=== PATIENT | male | born 1955 | race Caucasian/White ===

== ENCOUNTER 2017-08-02 11:45 | Emergency (ER) | payer OTHER ==
[2017-08-02] MEDS ORDERED: fentaNYL 100 MCG/2 ML SDV IM PRN (12:22)
--- NOTE | 2017-08-02 12:33 | EDM.PDOC ---
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 Has swelling to both areas and is tender. No numbness or tingling noted. No obvious deformities. Has not been able to bear weight on it due to the pain. No other injury noted. Onset: Sudden Location: Reports: Lower Extremity, Right Quality: Reports: Sharp Worsens with: Reports: Movement Associated Symptoms: Reports: No Other Symptoms Right Lower Leg Pain Score (Numeric/FACES): 7 - Related Data Allergies Allergy/AdvReac Type Severity Reaction Status Date / Time No Known Allergies Allergy Verified 08/02/17 11:54 Home Meds: Home Meds Lisinopril/Hydrochlorothiazide [Lisinopril-Hctz 20-25 mg Tab] 1 tab PO DAILY 09/14 [History] Past Medical History - Past Health History Medical/Surgical History: Denies Medical/Surgical History Cardiovascular History: Reports: Hypertension - Past Surgical History GI Surgical History: Reports: Colonoscopy Social & Family History - Tobacco Use Smoking Status *Q: Never Smoker - Caffeine Use Caffeine Use: Reports: Soda - Recreational Drug Use Recreational Drug Use: No Review of Systems - Review of Systems Review Of Systems: See Below Constitutional: Reports: No Symptoms Respiratory: Reports: No Symptoms Cardiovascular: Reports: No Symptoms GI/Abdominal: Reports: No Symptoms Musculoskeletal: Reports: Leg Pain, Foot Pain, Joint Pain Skin: Reports: No Symptoms Neurological: Reports: No Symptoms ED EXAM, GENERAL - Physical Exam Exam: See Below Exam Limited By: No Limitations General Appearance: Alert, WD/WN, Moderate Distress Respiratory/Chest: No Respiratory Distress, Lungs Clear, Normal Breath Sounds Cardiovascular: Regular Rate, Rhythm, No Edema Extremities: Other (Pain noted to the mid shaft nesbitt area. Area is swollen and tender to palpation. Has pain to the right ankle with any movment or palpation. Area is swollen. Good pulse noted.) Neurological: Alert, Oriented Skin Exam: Warm, Dry, Intact Course - Vital Signs Last Recorded V/S: Last Vital Signs Temp 98.2 F 08/02/17 11:57 Pulse 64 08/02/17 11:57 Resp 20 08/02/17 11:57 BP 123/57 L 08/02/17 11:57 Pulse Ox 94 L 08/02/17 11:57 - Orders/Labs/Meds Orders: Active Orders 24 hr Category Date Time Status Ankle Min 3V Rt [CR] Stat Exams 08/02/17 11:54 Taken Tibia Fibula Rt [CR] Stat Exams 08/02/17 11:54 Taken fentaNYL [Sublimaze] Med 08/02/17 12:22 Active 50 mcg IM Q4H PRN Medication Orders Fentanyl (Sublimaze) 50 mcg IM Q4H PRN PRN Reason: Pain Last Admin: 08/02/17 12:27 Dose: 50 mcg Meds: Medications Generic Name Dose Route Start Last Admin Trade Name Freq PRN Reason Stop Dose Admin Fentanyl 50 mcg 08/02/17 12:22 08/02/17 12:27 Sublimaze IM 50 mcg Q4H PRN Administration Pain - Re-Assessments/Exams Free Text/Narrative Re-Assessment/Exam: 08/02/17 [address] [facility]. Will see him on Sunday AM for surgery [place] at all times No weight bearing Nothing to eat or drink prior to surgery on Sunday. [facility] will call you in the next 1-2 days to register you and get info. David Departure - Departure Time of Disposition: 13:25 Disposition: Home, Self-Care 01 Condition: Good Clinical Impression: Fracture, fibula, shaft Qualifiers: Encounter type: initial encounter Fracture type: closed Fracture morphology: spiral Fracture alignment: nondisplaced Laterality: right Qualified Code(s): S82.444A - Nondisplaced spiral fracture of shaft of right fibula, initial encounter for closed fracture Maisonneuve fracture of right lower extremity Qualifiers: Encounter type: initial encounter Fracture type: closed Fracture alignment: displaced Qualified Code(s): S82.861A - Displaced Maisonneuve's fracture of right leg, initial encounter for closed fracture - Discharge Information Forms: ED Department Discharge Additional Instructions: [place] - 1-2 tabs every 4 hours as needed for pain Ice to the ankle 2-3 times a day to help with the swelling [place] at all times Non weight bearing at all times [facility] will call you to pre register and give you instructions Elevate leg as much as possible to prevent swelling - Problem List & Annotations (1) Fracture, fibula, shaft SNOMED Code(s): 23327940 Code(s): S82.409A - UNSP FRACTURE OF SHAFT OF UNSP FIBULA, INIT FOR CLOS FX Status: Acute Priority: High Qualifiers: Encounter type: initial encounter Fracture type: closed Fracture morphology: spiral Fracture alignment: nondisplaced Laterality: right Qualified Code(s): S82.444A - Nondisplaced spiral fracture of shaft of right fibula, initial encounter for closed fracture (2) Maisonneuve fracture of right lower extremity SNOMED Code(s): 48547527 Code(s): S82.861A - DISPLACED MAISONNEUVE'S FRACTURE OF RIGHT LEG, INIT Status: Acute Priority: High Qualifiers: Encounter type: initial encounter Fracture type: closed Fracture alignment: displaced Qualified Code(s): S82.861A - Displaced Maisonneuve's fracture of right leg, initial encounter for closed fracture - Problem List Review Problem List Initiated/Reviewed/Updated: Yes - My Orders Last 24 Hours: My Active Orders 08/02/17 11:54 Ankle Min 3V Rt [CR] Stat Tibia Fibula Rt [CR] Stat 08/02/17 12:22 fentaNYL [Sublimaze] 50 mcg IM Q4H PRN - Assessment/Plan Last 24 Hours: My Active Orders 08/02/17 11:54 Ankle Min 3V Rt [CR] Stat Tibia Fibula Rt [CR] Stat 08/02/17 12:22 fentaNYL [Sublimaze] 50 mcg IM Q4H PRN
== END 2017-08-02 14:00 | disposition home or self-care (01) ==
LOC: CC.ED 11:45
DX: S82.444A Nondisplaced spiral fracture of shaft of right fibula, initial encounter for closed fracture (principal); S82.861A Displaced Maisonneuve's fracture of right leg, initial encounter for closed fracture; Z79.899 Other long term (current) drug therapy; W00.0XXA Fall on same level due to ice and snow, initial encounter
CPT/HCPCS: 73590; 73610; 96372; 99283; J3010

== ENCOUNTER 2017-08-07 15:59 | Inpatient (IN) | payer OTHER ==
[2017-08-07] MEDS ORDERED: traMADol 50 MG Tab PO PRN (17:28)
[2017-08-07] MEDS: TRAMADOL 50 MG PO PRN (22:24)
[2017-08-08] MEDS: TRAMADOL 50 MG PO PRN ×3 (05:34→22:07)
[2017-08-08] MEDS ORDERED: ASPIRIN 325 MG PO SCH (08:00)
[2017-08-08] MEDS ORDERED: Lisinopril 20 MG Tab PO SCH (08:00)
[2017-08-08] MEDS ORDERED: Hydrochlorothiazide 25 MG Tab PO SCH (08:00)
[2017-08-08] MEDS ORDERED: Aspirin 325 MG Tab PO SCH (08:00)
[2017-08-08] MEDS: LISINOPRIL PO SCH (08:23)
[2017-08-08] MEDS: HCTZ PO SCH (08:23)
[2017-08-08] MEDS: ASPIRIN 325 MG PO SCH (08:23)
--- NOTE | 2017-08-08 09:04 | HP ---
CHIEF COMPLAINT: Status post fibular repair. HISTORY OF PRESENT ILLNESS: Gustavo is a 61-year-old male, who presents to the hospital for swing bed admission secondary to status post right lower extremity internal fixation that was completed today by Dr. Conrad at [facility]. He states that he has a lot difficulty as he is unable to bear any weight. He is concerned about going home albeit by himself and not being able to take care of himself. He states presently that he did fairly well throughout the procedure. Denies any post anesthesia complications. He states he has been feeling quite well. Admits to some discomfort in the right lower leg at this point in time. Dr. Conrad did send them home with the tramadol 50 mg one every 4 hours as needed. The injury did occur on 08/02, which he was out feeding cows and ended up slipping on some ice and immediately had some pain in his right ankle and right nesbitt area. It was determined that he had both displaced maisonneuve's fracture. PAST MEDICAL HISTORY: He does have a history of hypertension. PAST SURGICAL HISTORY: Includes a colonoscopy. CURRENT MEDICATIONS: Include lisinopril/HCTZ 20/25, one tab, p.o. daily, just recently started the aspirin 325 mg daily, and tramadol 50 mg every 4 hours as needed. SOCIAL HISTORY: Nondrinker, nonsmoker. REVIEW OF SYSTEMS: He denies any headache, fevers, chills, nausea, vomiting, shortness of breath, chest pain. No palpitations in his chest. Denies any upper respiratory symptoms. No cough. Denies any abdominal pain, any constipation. No urinary complaints. He does complain of some right lower extremity discomfort status post surgery, some swelling to the right lower extremity. PHYSICAL EXAMINATION: VITAL SIGNS: Height of 5 feet 7 inches. Weight 300 pounds. Temperature 100.1, respirations 16, blood pressure 130/66, O2 is 94% on room air, pulse 85. GENERAL: Pleasant, cooperative male, who is sitting comfortably in examination room, does not appear to be in acute distress, not acutely ill. HEENT: Grossly unremarkable. Head is normocephalic and atraumatic. Sclerae and conjunctivae clear. Ear canals are clear. Tympanic membranes are intact. Nasal mucosa is pink, moist. Oral mucosa is pink and moist. Pharynx is clear. NECK: Supple. Trachea is midline. No lymphadenopathy. LUNGS: Clear to auscultation. I did not hear any adventitious sounds. Respirations are equal and nonlabored. CARDIAC: Regular rate and rhythm. No murmurs, gallops, or rubs are noted. ABDOMEN: Morbidly obese, soft, nontender, nondistended. Bowel sounds are present. Normoactive. No organomegaly. No guarding or rigidity. EXTREMITIES: 1+ pedal edema in the right lower extremity. He does have a walking boot present. Wounds are covered with dressings which we are advised not to remove any dressings. Capillary refill is less than 3 seconds. ASSESSMENT: STATUS POST RIGHT FIBULAR REPAIR. PLAN: We will keep him on nonweightbearing and we will also eval for scooter usage by PT. We will ice 20 minutes on, 40 minutes off for the next 3 days. He does have a followup checkup 08/17 at 11:30 with [facility], in [place]. We will keep his diet as low-sodium diet. I did advise if he has any complications, questions or concerns, he is to definitely let us know, otherwise he will be admitted to Dr. Saavedra's services under half-way. GIANCARLO/GASPER /[id number]
[2017-08-09] MEDS: TRAMADOL 50 MG PO PRN ×2 (06:49→23:51)
[2017-08-09] MEDS: HCTZ PO SCH (07:51)
[2017-08-09] MEDS: LISINOPRIL PO SCH (07:51)
[2017-08-09] MEDS: ASPIRIN 325 MG PO SCH (07:51)
[2017-08-10] MEDS: TRAMADOL 50 MG PO PRN (03:52)
[2017-08-10] MEDS: HCTZ PO SCH (07:34)
[2017-08-10] MEDS: ASPIRIN 325 MG PO SCH (07:34)
[2017-08-10] MEDS: LISINOPRIL PO SCH (07:34)
[2017-08-11] MEDS: TRAMADOL 50 MG PO PRN ×2 (00:55→22:08)
[2017-08-11] MEDS: HCTZ PO SCH (07:50)
[2017-08-11] MEDS: ASPIRIN 325 MG PO SCH (07:50)
[2017-08-11] MEDS: LISINOPRIL PO SCH (07:50)
[2017-08-12] MEDS: TRAMADOL 50 MG PO PRN (06:14)
[2017-08-12] MEDS: ASPIRIN 325 MG PO SCH (08:04)
[2017-08-12] MEDS: LISINOPRIL PO SCH (08:05)
[2017-08-12] MEDS: HCTZ PO SCH (08:05)
--- NOTE | 2017-08-12 13:00 | PCM.DCSUM1 ---
Discharge Summary - Hospital Course Free Text/Narrative:: Patient was admitted to swing bed for pain control after having ORIF of right ankle due to fracture. 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 Had surgical procedure done by Dr. Louis on the . Patient felt he was not able to care for himself due to nonweightbearing status and pain so was admitted here. He had not done well on hydrocodone as he couldn't sleep so admitted with tramadol for pain. - Discharge Data Discharge Date: 08/12/17 Discharge Disposition: Home, Self-Care 01 Condition: Good - Patient Summary/Data Complications: none Consults: Consultations 08/07/17 17:20 PT Evaluation and Treatment [CONS] Routine Hospital Course: Patient doing well with the use of his walker as he will have to remain no weight bearing for 6 weeks. Cam boot intact. Does have a moderate amount of swelling to right ankle and foot. [place] bandage intact. He is tolerating pain with the tramadol. PT did work with patient for initial management of fracture care. Scheduled to see Dr. Louis on as planned. - Patient Instructions Diet: Usual Diet as Tolerated Activity: As Tolerated - Discharge Plan Home Medications: Home Meds Lisinopril/Hydrochlorothiazide [Lisinopril-Hctz 20-25 mg Tab] 1 tab PO DAILY 09/14 [History] Aspirin 325 mg PO DAILY 08/07/17 [History] traMADol [Ultram] 50 mg PO Q4H PRN 08/07/17 [History] Referrals: Tomasz Louis MD [Ordering Only Provider] - (Keep scheduled appointment with Dr. Louis on the as planned) - Discharge Summary/Plan Comment DC Time >30 min.: No Discharge Summary/Plan Comment: Discharge home on usual meds. Tramadol for pain - General Info Date of Service: 08/12/17 Admission Dx/Problem (Free Text: ORIF of Right Fibular Fracture Functional Status: Reports: Pain Controlled, Tolerating Diet, Ambulating - Review of Systems General: Reports: No Symptoms HEENT: Reports: No Symptoms Pulmonary: Reports: No Symptoms Cardiovascular: Reports: No Symptoms Gastrointestinal: Reports: No Symptoms Genitourinary: Reports: No Symptoms Musculoskeletal: Reports: Leg Pain Neurological: Reports: No Symptoms - Patient Data Vitals - Most Recent: Last Vital Signs Temp 97.8 F 08/12/17 07:17 Pulse 72 08/12/17 07:17 Resp 18 08/12/17 07:17 BP 134/75 08/12/17 07:17 Pulse Ox 94 L 08/12/17 07:17 Weight - Most Recent: 300 lb Med Orders - Current: Current Medications Aspirin (Ecotrin) 325 mg PO DAILY [facility] Last Admin: 08/12/17 08:04 Dose: 325 mg Ptom Lisinopril/ (Hctz 20/25 Mg Tab) 1 each PO DAILY [facility] Last Admin: 08/12/17 08:05 Dose: 1 each Tramadol HCl (Ultram) 50 mg PO Q4H PRN PRN Reason: Pain Last Admin: 08/12/17 06:14 Dose: 50 mg Discontinued Medications Aspirin (Aspirin) 325 mg PO DAILY [facility] Tramadol HCl (Ultram) 50 mg PO Q4H PRN PRN Reason: Pain Last Admin: 08/07/17 18:10 Dose: 50 mg - Exam General: Reports: Alert, Oriented HEENT: Reports: Mucous Membr. Moist/[place] Neck: Reports: Supple Lungs: Reports: Clear to Auscultation, Normal Respiratory Effort Cardiovascular: Reports: Regular Rate, Regular Rhythm GI/Abdominal Exam: Normal Bowel Sounds, Soft, Non-Tender Skin: Reports: Warm, Dry Wound/Incisions: Reports: Healing Well Neurological: Reports: No New Focal Deficit
== END 2017-08-12 13:00 | disposition home or self-care (01) | DRG 556 ==
LOC: CC.MS 16:28 → UNDOADMIN 16:28 → CC.MS 17:20
PROVIDERS: ADMIT Family Medicine; ATTEND Family Medicine
DX: R26.2 Difficulty in walking, not elsewhere classified (principal); M79.604 Pain in right leg; R60.0 Localized edema; S82.861D Displaced Maisonneuve's fracture of right leg, subsequent encounter for closed fracture with routine healing; W00.0XXD Fall on same level due to ice and snow, subsequent encounter; I10 Essential (primary) hypertension; Z79.82 Long term (current) use of aspirin; Z79.899 Other long term (current) drug therapy
CPT/HCPCS: A9270-GY

== ENCOUNTER 2020-07-20 19:16 | Observation (INO) | payer OTHER ==
[2020-07-20 19:50] LABS: CHLORIDE,CL 102 mEq/L (98-106); SODIUM,NA 142 mEq/L (136-145)
[2020-07-20] MEDS: Sodium Chloride 0.9% 1,000 ML IV SCH (19:50)
[2020-07-20] MEDS ORDERED: Ondansetron 4 MG/2 ML SDV IVPUSH PRN (19:52)
--- NOTE | 2020-07-20 19:54 | EDM.PDOC ---
ED HPI GENERAL MEDICAL PROBLEM - General Chief Complaint: General Stated Complaint: "dont feel good", sweating Time Seen by Provider: 07/20/20 19:25 Source of Information: Reports: Patient History Limitations: Reports: No Limitations - History of Present Illness INITIAL COMMENTS - FREE TEXT/NARRATIVE: Gustavo is a 64 year old male presents to ER with complaints of "not feeling well". States was sitting and reading on his phone when started to feel "off". Describes as dizzy yet room was feeling black as if going to pass out. Feels off balance. He denies chest pain. No shortness of breath. Had cramping in his abdomen, felt nauseated and thought was going to throw up but in turn had diarrhea. Had been feeling good up to that point. Ate per his norm today. Has not experienced symptoms like this in the past. Was pale and clammy on arrival to ER. At present, feels that dizziness has improved however still doesn't feel right. No head trauma. No headache Onset: Today, Sudden Duration: Minutes:, Waxing/Waning Location: Reports: Generalized Improves with: Reports: Rest Worsens with: Reports: Movement Associated Symptoms: Reports: Malaise, Nausea/Vomiting, Weakness. Denies: Confusion, Chest Pain, Cough, Fever/Chills, Headaches, Loss of Appetite, Seizure, Shortness of Breath - Related Data Allergies Allergy/AdvReac Type Severity Reaction Status Date / Time No Known Allergies Allergy Verified 07/20/20 19:49 Home Meds: Home Meds Lisinopril/Hydrochlorothiazide [Lisinopril-Hctz 20-25 mg Tab] 1 tab PO DAILY 08/02/17 [History] Past Medical History - Past Health History Medical/Surgical History: Denies Medical/Surgical History Cardiovascular History: Reports: Hypertension - Past Surgical History GI Surgical History: Reports: Colonoscopy Musculoskeletal Surgical History: Reports: Other (See Below) Other Musculoskeletal Surgeries/Procedures:: right leg plate and screws Social & Family History - Caffeine Use Caffeine Use: Reports: Soda ED ROS GENERAL - Review of Systems Review Of Systems: See Below Constitutional: Reports: Chills, Malaise, Weakness, Fatigue. Denies: Fever, Decreased Appetite HEENT: Reports: Vertigo. Denies: Ear Pain, Throat Pain, Vision Change Respiratory: Denies: Shortness of Breath, Cough Cardiovascular: Reports: Lightheadedness. Denies: Chest Pain, Edema Endocrine: Reports: Fatigue GI/Abdominal: Reports: Diarrhea, Nausea. Denies: Abdominal Pain, Constipation, Vomiting : Reports: No Symptoms Musculoskeletal: Reports: No Symptoms Skin: Reports: Pallor, Diaphoresis Neurological: Reports: Dizziness ED EXAM, GENERAL - Physical Exam Exam: See Below Exam Limited By: No Limitations General Appearance: Alert, Mild Distress Eye Exam: Bilateral Eye: EOMI, PERRL Ears: Normal External Exam, Normal TMs Nose: Normal Inspection, Normal Mucosa, No Blood Throat/Mouth: Normal Inspection, Normal Oropharynx Head: Normocephalic Neck: Normal Inspection, Supple, Non-Tender Respiratory/Chest: No Respiratory Distress, Lungs Clear, Normal Breath Sounds Cardiovascular: Regular Rate, Rhythm GI/Abdominal: Normal Bowel Sounds, Soft, Non-Tender Extremities: Normal Inspection, No Pedal Edema Neurological: Alert, Oriented, CN II-XII Intact Skin Exam: Diaphoretic, Pallor Course - Vital Signs Last Recorded V/S: Last Vital Signs Temp 99.1 F 07/20/20 19:32 Pulse 91 07/20/20 20:16 Resp 22 H 07/20/20 20:16 BP 130/73 07/20/20 20:16 Pulse Ox 95 07/20/20 19:42 - Orders/Labs/Meds Orders: Active Orders 24 hr Category Date Time Status EKG Documentation Completion [RC] STAT Care 07/20/20 19:24 Active Chest 2V [CR] Stat Exams 07/20/20 19:24 Taken Head wo Cont [CT] Stat Exams 07/20/20 19:47 Taken Ondansetron [Zofran] Med 07/20/20 19:52 Active 4 mg IVPUSH Q6H PRN Sodium Chloride 0.9% [Normal Saline] 1,000 ml Med 07/20/20 19:45 Active IV ASDIRECTED Medication Orders Sodium Chloride (Normal Saline) 1,000 mls @ 150 mls/hr IV ASDIRECTED ARNOLDO Last Admin: 07/20/20 19:50 Dose: 150 mls/hr Documented by: ADINA Ondansetron HCl (Ondansetron 4 Mg/2 Ml Sdv) 4 mg IVPUSH Q6H PRN PRN Reason: Nausea Last Admin: 07/20/20 19:55 Dose: 4 mg Documented by: KUTZANG Labs: Laboratory Tests 07/20/20 07/20/20 07/20/20 Range/Units 19:23 19:41 19:41 WBC 10.5 H (5.0-10.0) 10^3/uL RBC 4.71 (4.50-6.00) 10^6/uL Hgb 14.9 (14.0-18.0) g/dL Hct 43.8 (40.0-54.0) % MCV 93.0 (82.0-94.0) fL MCH 31.6 (27.0-32.0) pg MCHC 34.0 (33.0-38.0) g/dL RDW Coeff of Sunil 12.3 (11.0-15.0) % Plt Count 342 (150-400) 10^3/uL Neut % (Auto) 50.5 (35-85) % Lymph % (Auto) 37.3 (10-55) % Harrison % (Auto) 9.1 (0-16) % Eos % (Auto) 2.7 (0-5) % Baso % (Auto) 0.4 (0-3) % Neut # (Auto) 5.30 (1.80-7.00) 10^3/uL Lymph # (Auto) 3.92 (1.00-4.80) 10^3/uL Harrison # (Auto) 0.96 H (0.00-0.80) 10^3/uL Eos # (Auto) 0.28 (0.00-0.45) 10^3/uL Baso # (Auto) 0.04 10^3/uL PT 10.7 (9.7-12.3) SEC INR 0.98 (0.92-1.18) APTT 21.6 L (23.2-32.3) SEC D-Dimer, Quantitative 0.48 (0.00-0.50) Sodium 142 (136-145) mEq/L Potassium 3.2 L (3.5-5.0) mEq/L Chloride 102 (98-106) mEq/L Carbon Dioxide 26 (21-32) mmol/L BUN 18 (7-18) mg/dL Creatinine 1.2 (0.7-1.3) mg/dL Est Cr Clr Drug Dosing 58.14 mL/min Estimated GFR (MDRD) > 60 (>=60) mL/min Glucose 159 H D (75-99) mg/dL Calcium 9.3 (8.4-10.1) mg/dL Magnesium 1.8 (1.8-2.4) mg/dL Total Bilirubin 0.6 (0.0-1.0) mg/dL AST 44 H (15-37) U/L ALT 67 (12-78) U/L Alkaline Phosphatase 61 (46-116) U/L Lactate Dehydrogenase 172 (100-190) U/L Creatine Kinase 83 (35-232) U/L Troponin I < 0.017 (0.00-0.06) ng/mL Total Protein 8.0 (6.4-8.2) g/dL Albumin 3.8 (3.4-5.0) g/dL Lipase 129 (73-393) U/L SARS CoV-2 RNA Rapid EMMY (NEGATIVE) 07/20/20 Range/Units 20:19 WBC (5.0-10.0) 10^3/uL RBC (4.50-6.00) 10^6/uL Hgb (14.0-18.0) g/dL Hct (40.0-54.0) % MCV (82.0-94.0) fL MCH (27.0-32.0) pg MCHC (33.0-38.0) g/dL RDW Coeff of Sunil (11.0-15.0) % Plt Count (150-400) 10^3/uL Neut % (Auto) (35-85) % Lymph % (Auto) (10-55) % Harrison % (Auto) (0-16) % Eos % (Auto) (0-5) % Baso % (Auto) (0-3) % Neut # (Auto) (1.80-7.00) 10^3/uL Lymph # (Auto) (1.00-4.80) 10^3/uL Harrison # (Auto) (0.00-0.80) 10^3/uL Eos # (Auto) (0.00-0.45) 10^3/uL Baso # (Auto) 10^3/uL PT (9.7-12.3) SEC INR (0.92-1.18) APTT (23.2-32.3) SEC D-Dimer, Quantitative (0.00-0.50) Sodium (136-145) mEq/L Potassium (3.5-5.0) mEq/L Chloride (98-106) mEq/L Carbon Dioxide (21-32) mmol/L BUN (7-18) mg/dL Creatinine (0.7-1.3) mg/dL Est Cr Clr Drug Dosing mL/min Estimated GFR (MDRD) (>=60) mL/min Glucose (75-99) mg/dL Calcium (8.4-10.1) mg/dL Magnesium (1.8-2.4) mg/dL Total Bilirubin (0.0-1.0) mg/dL AST (15-37) U/L ALT (12-78) U/L Alkaline Phosphatase (46-116) U/L Lactate Dehydrogenase (100-190) U/L Creatine Kinase (35-232) U/L Troponin I (0.00-0.06) ng/mL Total Protein (6.4-8.2) g/dL Albumin (3.4-5.0) g/dL Lipase (73-393) U/L SARS CoV-2 RNA Rapid EMMY Negative (NEGATIVE) Meds: Medications Generic Name Dose Route Start Last Admin Trade Name Freq PRN Reason Stop Dose Admin Sodium Chloride 1,000 mls @ 150 mls/hr 07/20/20 19:45 07/20/20 19:50 Normal Saline IV 150 mls/hr ASDIRECTED ARNOLDO Administration Ondansetron HCl 4 mg 07/20/20 19:52 07/20/20 19:55 Ondansetron 4 Mg/2 Ml Sdv IVPUSH 4 mg Q6H PRN Administration Nausea - Re-Assessments/Exams Free Text/Narrative Re-Assessment/Exam: 07/20/20 20:[address] scan, did get nauseated and whoozy again. Blood pressure did drop to 105 systolic. 2030- Head CT is normal. Labs are all essentially stable. Potassium slightly low at 3.2. Cardiac enzymes, d-dimer and covid negative. Discussed with patient. will admit to observation, continue IV fluids due to hypokalemia, dizziness and monitor neuro status and cardiac telemetry. Departure - Departure Time of Disposition: 20:39 Disposition: Refer to Observation Condition: Fair Clinical Impression: Vertigo - Discharge Information *PRESCRIPTION DRUG MONITORING PROGRAM REVIEWED*: No *COPY OF PRESCRIPTION DRUG MONITORING REPORT IN PATIENT JOSS: No Referrals: Stephen Saavedra MD [Primary Care Provider] - Forms: ED Department Discharge Sepsis Event Note (ED) - Focused Exam Vital Signs: Vital Signs Temp Pulse Resp BP Pulse Ox 07/20/20 20:16 91 22 H 130/73 07/20/20 19:42 101 H 137/74 95 07/20/20 19:36 92 18 138/81 90 L 07/20/20 19:32 99.1 F 96 16 132/78 91 L 07/20/20 19:22 99.1 F 96 21 H 133/76 92 L - Problem List & Annotations (1) Vertigo SNOMED Code(s): 514557461 Code(s): R42 - DIZZINESS AND GIDDINESS Status: Acute Priority: High Current Visit: Yes - Problem List Review Problem List Initiated/Reviewed/Updated: Yes - My Orders Last 24 Hours: My Active Orders 07/20/20 19:24 EKG Documentation Completion [RC] STAT Chest 2V [CR] Stat 07/20/20 19:45 Sodium Chloride 0.9% [Normal Saline] 1,000 ml IV ASDIRECTED 07/20/20 19:47 Head wo Cont [CT] Stat 07/20/20 19:52 Ondansetron [Zofran] 4 mg IVPUSH Q6H PRN - Assessment/Plan Admission H&P: Please use this note as an admission H&P Last 24 Hours: My Active Orders 07/20/20 19:24 EKG Documentation Completion [RC] STAT Chest 2V [CR] Stat 07/20/20 19:45 Sodium Chloride 0.9% [Normal Saline] 1,000 ml IV ASDIRECTED 07/20/20 19:47 Head wo Cont [CT] Stat 07/20/20 19:52 Ondansetron [Zofran] 4 mg IVPUSH Q6H PRN Assessment:: Vertigo Plan: Admit observation. Telemetry, neuro checks. IV fluids. Zofran for nausea.
[2020-07-20 20:00] LABS: PTT,PARTIAL THROMBOPLSTIN TIME 21.6 SEC (23.2-32.3)
[2020-07-20] MEDS ORDERED: Acetaminophen 325 MG Tab PO PRN (20:58)
[2020-07-20] MEDS ORDERED: Ondansetron 4 MG Tab.DIS PO PRN (20:58)
[2020-07-20] MEDS ORDERED: Enoxaparin 40 MG/0.4 ML Syringe SUBCUT SCH (21:00)
[2020-07-21] MEDS: Sodium Chloride 0.9% 1,000 ML IV SCH (03:26)
[2020-07-21 07:24] LABS: CHLORIDE,CL 103 mEq/L (98-106); SODIUM,NA 142 mEq/L (136-145)
--- NOTE | 2020-07-21 23:25 | PCM.DCSUM1 ---
Discharge Summary - Hospital Course HPI Initial Comments: Gustavo is a 64 year old male presented to ER with complaints of "not feeling well" yesterday evening. States was sitting and reading on his phone when started to feel "off". Describes as dizzy yet room was feeling black as if going to pass out. [place] off balance. He denied any chest pain. No shortness of breath. Had cramping in his abdomen, felt nauseated and thought was going to throw up but in turn had diarrhea. Had been feeling good up to that point. Ate per his norm yesterday. Had not experienced symptoms like this in the past. Was pale and clammy on arrival to ER. Prior to admission he admitted the dizziness had improved however still didn't feel right. No head trauma. No headache. Patient underwent CT of the brain which was unremarkable. Cardiac work up in the ED was negative. D-dimer negative. Potassium slightly low. Patient was admitted under observation status. Diagnosis: Stroke: No - Discharge Data Discharge Date: 07/21/20 Discharge Disposition: Home, Self-Care 01 Condition: Good - Referral to Home Health Primary Care Physician: Stephen Saavedra MD - Discharge Diagnosis/Problem(s) (1) Vertigo SNOMED Code(s): 991396936 ICD Code: R42 - DIZZINESS AND GIDDINESS Status: Resolved Priority: High - Patient Instructions Diet: Usual Diet as Tolerated Activity: As Tolerated - Discharge Plan *PRESCRIPTION DRUG MONITORING PROGRAM REVIEWED*: No *COPY OF PRESCRIPTION DRUG MONITORING REPORT IN PATIENT JOSS: No Prescriptions/Med Rec: Meclizine [Antivert] 25 mg PO Q6H PRN #30 tab PRN Reason: Dizziness Home Medications: Home Meds Lisinopril/Hydrochlorothiazide [Lisinopril-Hctz 20-25 mg Tab] 1 tab PO DAILY 08/02/17 [History] Meclizine [Antivert] 25 mg PO Q6H PRN #30 tab 07/21/20 [Rx] Oxygen Therapy Mode: Room Air Patient Handouts: Diverticulitis, [id number], Dizziness, [id number] Forms: ED Department Discharge Referrals: Manuel Jackson PA-C [Physician Wireless Sales Representative] - 07/30/20 (1:00pm) - Discharge Summary/Plan Comment DC Time >30 min.: Yes Discharge Summary/Plan Comment: Patient was feeling back to normal self this morning. Denied any concerns. Dizziness subsided and verbalized he wanted to go home. Patient has known history of diverticulitis in the past and similar symptoms. Will discharge on Ciprofloxacin. Discussed obtaining CT of the abdomen/pelvis to look at diverticula, which patient declined today. Meclizine prescribed and advised to use if any further vertigo. Potassium corrected on repeat labs. Patient will follow up with primary in 1 week, advised to return sooner if any concerns. - General Info Date of Service: 07/21/20 Subjective Update: Gustavo appears to be in good spirits today and admits dizziness has completely subsided. Denies feeling off or having any symptoms from yesterday. He admits to having history of diverticulitis and is having similar symptoms. Declines further work up with imaging at this time. Requests to be discharged today. Functional Status: Reports: Pain Controlled, Tolerating Diet, Ambulating, Urinating. Denies: New Symptoms - Review of Systems General: Reports: No Symptoms HEENT: Reports: No Symptoms Pulmonary: Reports: No Symptoms Cardiovascular: Reports: No Symptoms Gastrointestinal: Reports: Abdominal Pain, Diarrhea. Denies: Hematochezia, Melena, Nausea, Vomiting Genitourinary: Reports: No Symptoms Musculoskeletal: Reports: No Symptoms Skin: Reports: No Symptoms Neurological: Reports: No Symptoms. Denies: Dizziness, Headache, Difficulty Walking Psychiatric: Reports: No Symptoms - Patient Data Vitals - Most Recent: Last Vital Signs Temp 98.1 F 07/21/20 07:56 Pulse 71 07/21/20 07:56 Resp 18 07/21/20 07:56 BP 138/81 07/21/20 07:56 Pulse Ox 94 L 07/21/20 07:56 Orthostatic Blood Pressure [ 113/60 Standing] Weight - Most Recent: 305 lb Lab Results - Last 24 hrs: Laboratory Results - last 24 hr 07/21/20 07/21/20 Range/Units 07:08 07:08 WBC 10.3 H (5.0-10.0) 10^3/uL RBC 4.46 L (4.50-6.00) 10^6/uL Hgb 14.0 (14.0-18.0) g/dL Hct 42.2 (40.0-54.0) % MCV 94.6 H (82.0-94.0) fL MCH 31.4 (27.0-32.0) pg MCHC 33.2 (33.0-38.0) g/dL RDW Coeff of Sunil 12.4 (11.0-15.0) % Plt Count 331 (150-400) 10^3/uL Neut % (Auto) 71.5 (35-85) % Lymph % (Auto) 19.3 (10-55) % [place] % (Auto) 7.9 (0-16) % Eos % (Auto) 1.1 (0-5) % Baso % (Auto) 0.2 (0-3) % Neut # (Auto) 7.36 H (1.80-7.00) 10^3/uL Lymph # (Auto) 1.99 (1.00-4.80) 10^3/uL [place] # (Auto) 0.81 H (0.00-0.80) 10^3/uL Eos # (Auto) 0.11 (0.00-0.45) 10^3/uL Baso # (Auto) 0.02 10^3/uL Sodium 142 (136-145) mEq/L Potassium 3.9 D (3.5-5.0) mEq/L Chloride 103 (98-106) mEq/L Carbon Dioxide 32 (21-32) mmol/L BUN 12 (7-18) mg/dL Creatinine 1.0 (0.7-1.3) mg/dL Est Cr Clr Drug Dosing 69.77 mL/min Estimated GFR (MDRD) > 60 (>=60) mL/min Glucose 109 H D (75-99) mg/dL Calcium 9.0 (8.4-10.1) mg/dL Magnesium 1.7 L (1.8-2.4) mg/dL Troponin I < 0.017 (0.00-0.06) ng/mL C-Reactive Protein 1.3 H (0.2-0.8) mg/dL Med Orders - Current: Current Medications Discontinued Medications Acetaminophen (Acetaminophen 325 Mg Tab) 650 mg PO Q4H PRN PRN Reason: Pain (Mild 1-3)/fever Enoxaparin Sodium (Enoxaparin 40 Mg/0.4 Ml Syringe) 40 mg SUBCUT Q24H ARNOLDO Last Admin: 07/20/20 22:03 Dose: 40 mg Documented by: Sodium Chloride (Normal Saline) 1,000 mls @ 100 mls/hr IV ASDIRECTED ARNOLDO Last Admin: 07/21/20 03:26 Dose: 150 mls/hr Documented by: Ondansetron HCl (Ondansetron 4 Mg/2 Ml Sdv) 4 mg IVPUSH Q6H PRN PRN Reason: Nausea Last Admin: 07/20/20 19:55 Dose: 4 mg Documented by: Ondansetron HCl (Ondansetron 4 Mg Tab.Dis) 4 mg PO Q4H PRN PRN Reason: nausea, able to take PO - Exam General: Reports: Alert, Oriented Lungs: Reports: Clear to Auscultation, Normal Respiratory Effort Cardiovascular: Reports: Regular Rate, Regular Rhythm GI/Abdominal Exam: Normal Bowel Sounds, Soft, No Organomegaly, No Distention, Tender (mild tenderness LLQ) Extremities: Normal Inspection, Pedal Edema (trace) Skin: Reports: Warm, Dry, Intact Neurological: Reports: No New Focal Deficit Psy/Mental Status: Reports: Alert, Normal Affect, Normal Mood
== END 2020-07-21 10:35 | disposition home or self-care (01) ==
LOC: CC.ED 19:16 → CC.MS 20:42 → UNDOADMOB 20:53 → CC.MS 20:53
PROVIDERS: ADMIT Physician Assistant Medical; ATTEND Family Medicine
DX: R42 Dizziness and giddiness (principal); I10 Essential (primary) hypertension; Z79.899 Other long term (current) drug therapy; Z20.822 Contact with and (suspected) exposure to COVID-19
CPT/HCPCS: 36415; 70450; 71046; 80048; 80053; 82550; 83615; 83690; 83735; 84484; 85025; 85379; 85610; 85730; 86140; 93005; 96372; 96374; 99285-25; G0378; J1650; J2405; J7030; U0002

== ENCOUNTER 2024-03-14 08:12 | Day surgery (SDC) | payer BC ==
[2024-03-14] MEDS: Lactated Ringers 1,000 ML IV SCH (08:26)
[2024-03-14] MEDS ORDERED: Ketamine 200 MG/20 ML MDV ONE (09:04)
[2024-03-14] MEDS ORDERED: Midazolam 1 MG/ML 2 ML SDV ONE (09:04)
[2024-03-14] MEDS ORDERED: fentaNYL 50 MCG/ML SDV ONE (09:04)
[2024-03-14] MEDS ORDERED: Propofol 200 MG/20 ML SDV ONE (09:04)
== END 2024-03-14 10:20 ==
LOC: CC.SDS 08:12
PROVIDERS: ATTEND Family Medicine
DX: Z12.11 Encounter for screening for malignant neoplasm of colon (principal); K57.30 Diverticulosis of large intestine without perforation or abscess without bleeding; E66.9 Obesity, unspecified; I10 Essential (primary) hypertension; Z79.899 Other long term (current) drug therapy; Z86.16 Personal history of COVID-19; Z68.42 Body mass index [BMI] 45.0-49.9, adult
CPT/HCPCS: J2250; J2704; J3010; J3490; J7120